=== PATIENT | female | born 1950 | race African-American/Black ===

== ENCOUNTER → 2020-04-28 | Outpatient (CLI) | payer MEDICARE, OTHER ==
[~2020-04-28] MED LIST: ATENOLOL; COZAAR; IBUPROFEN; IOPAMIDOL 370 MG/ML 200 ML INFUS..BTL INJ ONE; NORVASC; SODIUM CHLORIDE 0.9% 100 ML ONE; SODIUM CHLORIDE 0.9% 500ML 500 ML ONE; TRAMADOL
[2020-04-28 09:27] LABS: CREATININE, SERUM 1.38 mg/dL (0.57-1.11)
--- NOTE | 2020-04-28 12:05 | Diagnostic Imaging Report ---
CTA NECK HISTORY: Carotid stenosis COMPARISON: None. TECHNIQUE: CTA of the neck was performed with intravenous iodine based contrast. Coronal, sagittal, 3-D, and oblique maximum intensity projection reformations were created. One or more of the following dose reduction techniques were used: Automated exposure control, adjustment of the mA and/or kV according to patient size, and/or utilization of iterative reconstruction technique. DISCUSSION: If present, any cervical carotid stenosis will be measured as a percentage relative to the [place] artery distal to the stenosis (NASCET). There is diffuse calcified atherosclerosis throughout the aortic arch and proximal great vessels without significant stenosis. Right Carotid: Mild calcified plaque in the right carotid bulb does not cause significant stenosis. Focal calcified plaque in the proximal cervical right internal carotid artery causes up to 50% focal stenosis. Left Carotid: Mild calcified plaque at the left carotid bulb does not cause significant stenosis. Right vertebral artery: Mild to moderate focal stenosis at the right vertebral artery ostium due to calcified plaque. Left vertebral artery: Mild to moderate focal stenosis at the left vertebral artery ostium due to calcified plaque. Mild calcified plaque in the left V1 segment does not cause significant stenosis. The intracranial arterial vasculature is partially imaged. Mild right vertebral artery V4 segment calcified plaque does not cause significant stenosis. Mild bilateral carotid siphon calcifications are present without significant stenosis. 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 Additional findings: Bilateral ocular lens replacement. Scarring and emphysematous changes are seen in the lung apices. Mild bilateral dependent groundglass opacities may be due to atelectasis. Partially imaged prominent pulmonary artery suggests pulmonary hypertension. There is mild mucosal thickening in the left maxillary and right sphenoid sinus. There are prominent degenerative changes throughout the spine. IMPRESSION: 1. Up to 50% focal stenosis in the proximal cervical right internal carotid artery due to calcified plaque. 2. Mild bilateral carotid bulb calcified plaque without significant stenosis. 3. Mild to moderate focal stenoses in the bilateral vertebral artery ostia due to calcified plaque. 4. No other significant cervical CTA abnormalities. 5. Approximately 9 mm broad-based, fusiform right cavernous internal carotid artery aneurysm. Signed by: Dr. Ramón Ayala M.D. on 04/28/2020 12:02 PM
== END ==
LOC: CT 08:01
PROVIDERS: ATTEND Internal Medicine
DX: I65.23 Occlusion and stenosis of bilateral carotid arteries (principal)
CPT/HCPCS: 36415; 70498; 82565; 84520; 96360; J7040; J7050; Q9967